=== PATIENT | female | born 1985 | race Two or more races ===

== ENCOUNTER 2023-07-02 16:13 | Emergency (ER) | payer MEDICAID ==
[~2023-07-02] VITALS: Ht 154.9 cm; Wt 65.8 kg
[2023-07-02 17:00] VITALS: BP 132/74; TEMP 98.4; O2SAT 100
[2023-07-02] MEDS ORDERED: HYDR50TA61 PO (17:59)
== END 2023-07-02 18:08 | disposition home or self-care (01) ==
LOC: ER 16:13
DX: F41.9 Anxiety disorder, unspecified (principal)

== ENCOUNTER 2023-07-23 20:04 | Emergency (ER) | payer MEDICAID ==
[~2023-07-23] VITALS: Ht 154.9 cm; Wt 63.5 kg
[~2023-07-23 20:04] MED LIST: HYDR50TA61 PO
[2023-07-23 21:04] VITALS: BP 133/90; TEMP 97.7; O2SAT 98
[2023-07-23] MEDS ORDERED: MELA5TAB PO ×2 (22:09→22:17)
== END 2023-07-23 22:22 | disposition home or self-care (01) ==
LOC: ER 20:07
DX: F41.9 Anxiety disorder, unspecified (principal); Z79.899 Other long term (current) drug therapy